=== PATIENT | male | born 1955 | race Caucasian/White ===

== ENCOUNTER 2025-05-02 03:49 | Day surgery (SDC) | payer OTHER, SELFPAY ==
[2025-04-16 11:03] VITALS: BMI 30.9
--- OUTSIDE RECORDS SUMMARY | 2025-05-02 03:52 | XMS_ITS ---
Author Organization [facility] Address [address] [facility] 61 [facility] G30 [place] [address] Care Team Providers Care Legal Support Specialist Name Role Phone Vignesh Gay Unavailable [phone] Social History Sex Assigned At : Social History Observation Description Sex Assigned At Male Encounters Encounter Location Date Provider Diagnosis [place] [facility] [address] [facility] 15 [place] [address] 10/13/2024 Vignesh Gay Plan Of Treatment No Information Progress Notes * KODY BRAVOOB:1955 ([age] yo M)Acc No.[id number]:10/13/2024 Progress Notes Patient: NAVID WISE Provider: Edwina MENDES MD, F.Fanny.C.P, F.A.S.N. :1955 A ge:69 Y S ex:Male Date:10/13/2024 Address:[address] [place], [place] [id number] Subjective: * Chief Complaints: * * Medical History: Objective: * Vitals: Assessment: Plan: * Treatment: * Billing Information: * Visit Code: * Procedure Codes: * Electronic signature of Enrique Gay MD on 05/02/2025 at 03:52 AM CDT Sign off status: Pending * Provider: Edwina MENDES MD, F.Fanny.C.P, F.A.S.N. Date: 0 10/13/2024 Generated for Printing/Faxing/eTransmitting on: 0 05/02/2025 03:52 AM CDT
--- OUTSIDE RECORDS SUMMARY | 2025-05-02 03:52 | XMS_ITS | Patient Health Record ---
Author Organization [facility] Address [address] [place] [address] [place] [address] Care Team Providers Care Student Records Coordinator Name Role Phone Vignesh Gay Unavailable [phone] Reason For Referral No Information Medications Medication SIG (Take, Route, Frequency, Duration) Notes Start Date End Date Status Urocit-K 10 10 MEQ (1080 MG) 2 tablet with meals Orally Three times a day; Duration: 90 day(s) 12/06/2024 Active Ergocalciferol 1.25 MG (15229 UT) 1 capsule Orally Once a week; Duration: 90 day(s) 12/06/2024 09/04/2025 Active Calcitriol 0.25 MCG 1 capsule Orally Onc e a day; Duration: 90 day(s) 12/06/2024 09/04/2025 Active Social History Sex Assigned At : Social History Observation Description Sex Assigned At Male Problems Problem Type SNOMED Code ICD Code Onset Dates Problem Status W/U Status Risk Notes Problem Type II diabetes mellitus without complication (368291769) Type 2 diabetes mellitus without complications (E11.9) Active confirmed Problem Hyperlipidemia (03229754) Hyperlipidemia, unspecified (E78.5) Active confirmed Problem Hydronephrosis w ith renal and ureteral calculous obstruction (N13.2) Active confirmed Problem Renal osteodystrophy (16066041) Renal osteodystrophy (N25.0) Active confirmed Problem Secondary hyperparathyroidism of renal origin (36880538) Secondary hyperparathyroidism of renal origin (N25.81) Active confirmed Problem Pyeloureteritis cystica (90507974) 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) Active confirmed Problem Essential hypertension (73350631) Essential hypertension (I10) Active confirmed Problem Chronic kidney disease stage 3A (disorder) (643513774) Chronic kidney disease, stage 3a (N18.31) Active confirmed Encounters Encounter Location Date Provider Diagnosis [facility] [place] [facility] [address] [place] [address] [place] [address] 09/08/2024 Vignesh Gay Chronic kidney disea se, stage 3b N18.32 ; Type 2 diabetes mellitus without complications E11.9 and Unspecified hydronephrosis N13.30 [place] [facility] [address] [address] 12/06/2024 Vignesh Gay Chronic kidney disea se, stage 3a N18.31 ; Type 2 diabetes mellitus without complications E11.9 ; Hyperlipidemia, unspecified E78.5 ; Renal osteodystrophy N25.0 ; Hydronephrosis with renal and ureteral calculous obstruction N13.2 ; Secondary hyperparathyroidism of renal origin N25.81 ; Pyeloureteritis cystica N28.85 and Essential hypertension I10 [facility] [address] [place] [address] 01/24/[address] [facility] Office [address] [address] 12/06/[address] [facility] [address] [place] [address] 12/08/2024 Vignesh Gay Assessments Encounter Date Diagnosis (ICD Code) Assessment Notes Treatment Notes Treatment Clinical Notes Section Notes 09/08/2024 Chronic kidney disea se, stage 3b (ICD-10 - N18.32) 09/08/2024 Type 2 diabetes mellitus without complications (ICD-10 - E11.9) 12/06/2024 Chronic kidney disea se, stage 3a (ICD-10 - N18.31) 09/08/2024 Unspecified hydronephrosis (ICD-10 - N13.30) 12/06/2024 Type 2 diabetes mellitus without complications (ICD-10 - E11.9) 12/06/2024 Hyperlipidemia, unspecified (ICD-10 - E78.5) 12/06/2024 Renal osteodystrophy (ICD-10 - N25.0) 12/06/2024 Hydronephrosis with renal and ureteral calculous obstruction (ICD-10 - N13.2) 12/06/2024 Secondary hyperparathyroidism of renal origin (ICD-10 - N25.81) 12/06/2024 Pyeloureteritis cyst ica (ICD-10 - N28.85) 12/06/2024 Essential hypertensi on (ICD-10 - I10) Plan Of Treatment No Information
--- OUTSIDE RECORDS SUMMARY | 2025-05-02 03:52 | XMS_ITS ---
Author Organization [facility] Address [address] [facility] 61 [facility] [address] [place] [address] Care Team Providers Care Site Manager Name Role Phone Vignesh Gay Unavailable [phone] Social History Sex Assigned At : Social History Observation Description Sex Assigned At Male Encounters Encounter Location Date Provider Diagnosis [place] [facility] [address] [facility] 15 [place] [address] 01/24/2025 Vignesh Gay Plan Of Treatment No Information Progress Notes * KODY BRAVOOB:1955 ([age] yo M)Acc No.[id number]:01/24/2025 Progress Notes Patient: NAVID WISE Provider: Edwina MENDES MD, F.Fanny.C.P, F.A.S.N. :1955 A ge:69 Y S ex:Male Date:01/24/2025 Address:[address] [place], [place] [phone] Subjective: * Chief Complaints: * * Medical History: Objective: * Vitals: Assessment: Plan: * Treatment: * Billing Information: * Visit Code: * Procedure Codes: * Electronic signature of Enrique Gay MD on 05/02/2025 at 03:52 AM CDT Sign off status: Pending * Provider: Edwina MENDES MD, F.Fanny.C.P, F.A.S.N. Date: 01/24/2025 Generated for Printing/Faxing/eTransmitting on: 05/02/2025 03:52 AM CDT
--- OUTSIDE RECORDS SUMMARY | 2025-05-02 03:52 | XMS_ITS | Continuity of Care Document ---
Author Organization [facility] Address [address] [place] [address] Phone Care Team Providers Care Mailing Machine Helper Name Role Phone Phuong Jernigan MD Unavailable Unavailabl e Procedures Procedure Date TISSUE EXAM BY PATHOLOGIST SPECIAL STAINS SPECIAL STAINS UPPER GI ENDOSCOPY BIOPSY Advance Directives Directive Yes / No Effective Date File Name No Information Encounters Encounter Description Practice Location Reason(s) For Visit Diagnoses Date Provider Providers Copied on Encounter [facility], [address], [place], [place], [address], tel:[phone] [facility] No Information Delon aBca. [facility], [id number], [place]. tel:[phone] [facility], [address], [place], [address], tel:[phone] [facility] No Information Delon Baca. [address], [id number], [place]. tel:[phone] Referring Provider: Danny Oliveira, [facility]6 [facility], [place], [address]. tel:[phone] [facility], [address], [place], [address], tel:[phone] [facility] No Information Delon Baca. [address], [id number], . tel:[phone] Referring Provider: Danny Oliveira, [address] [facility], [place], [address]. tel:[phone] Family History Family Member Type Diagnosis Age At Onset No Information Payers Payer name Insurance type Covered libertarian ID Authoriza tipriti(s) [facility] CHOICE PLUS CI [id number] Social History Type Description Quantity Date Captured Comments Sex Male Smoking Status No Information Chief Complaint And Reason For Visit No Information Reason For Referral Reason For Referral No Information History Of Present Illness Encounter Date Complaint History Of Prese nt Illness No Information Functional Status Date Functional Assessmen t No Information Instructions Date Instruction Additional Infor mation No Information Assessments Type Assessment Date No Information Patient Care Teams Name Effective Dates (start - stop) Status Members No Information
--- OUTSIDE RECORDS SUMMARY | 2025-05-02 03:53 | XMS_ITS ---
Author Organization [facility] Address [address] [place] [address] Care Team Providers Care Neuro Urologist Name Role Phone Vignesh Gay Unavailable [phone] Social History Sex Assigned At : Social History Observation Description Sex Assigned At Male Problems Problem Type SNOMED Code ICD Code Onset Dates Problem Status W/U Status Risk Notes Problem Hyperlipidemia (12838458) Hyperlipidemia, unspecified (E78.5) Active confirmed Problem Renal osteodystrophy (74741013) Renal osteodystrophy (N25.0) Active confirmed Problem Chronic kidney disease stage 3A (disorder) (836949386) Chronic kidney disease, stage 3a (N18.31) Active confirmed Problem Hydronephrosis w ith renal and ureteral calculous obstruction (N13.2) Active confirmed Problem Secondary hyperparathyroidism of renal origin (67074379) Secondary hyperparathyroidism of renal origin (N25.81) Active confirmed Problem Pyeloureteritis cystica (75290266) 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) Active confirmed Problem Essential hypertension (40625310) Essential hypertension (I10) Active confirmed Encounters Encounter Location Date Provider Diagnosis [place] [facility] [address] [facility] [address] [address] [place] [address] 12/06/2024 Vignesh Gay Chronic kidney disea se, stage 3a N18.31 ; Type 2 diabetes mellitus without complications E11.9 ; Hyperlipidemia, unspecified E78.5 ; Renal osteodystrophy N25.0 ; Hydronephrosis with renal and ureteral calculous obstruction N13.2 ; Secondary hyperparathyroidism of renal origin N25.81 ; Pyeloureteritis cystica N28.85 and Essential hypertension I10 Assessments Encounter Date Diagnosis (ICD Code) Assessment Notes Treatment Notes Treatment Clinical Notes Section Notes 12/06/2024 Chronic kidney disea se, stage 3a (ICD-10 - N18.31) 12/06/2024 Type 2 diabetes mellitus without complications (ICD-10 - E11.9) 12/06/2024 Hyperlipidemia, unspecified (ICD-10 - E78.5) 12/06/2024 Renal osteodystrophy (ICD-10 - N25.0) 12/06/2024 Hydronephrosis with renal and ureteral calculous obstruction (ICD-10 - N13.2) 12/06/2024 Secondary hyperparathyroidism of renal origin (ICD-10 - N25.81) 12/06/2024 Pyeloureteritis cyst ica (ICD-10 - N28.85) 12/06/2024 Essential hypertensi on (ICD-10 - I10) Plan Of Treatment No Information Progress Notes * KODY BRAVOOB:1955 ([age] yo M)Acc No.[id number]:12/06/2024 Progress Notes Patient: NAVID WISE Provider: Edwina MENDES MD, F.A.C.P, F.A.S.N. :1955 A ge:69 Y S ex:Male Date:12/06/2024 Address:[address] [place], [place] [id number] Subjective: * Chief Complaints: * * Medical History: Objective: * Vitals: Assessment: * Assessment: 1. C hronic kidney disease, stage 3a - N18.31 (Primary) 2 . T ype 2 diabetes mellitus without complications - E11.9 3 . H yperlipidemia, unspecified - E78.5 4 . R enal osteodystrophy - N25.0 5 . H ydronephrosis with renal and ureteral calculous obstruction - N13.2 6 . S econdary hyperparathyroidism of renal origin - N25.81 7 . P yeloureteritis cystica - N28.85 ?8. E ssential hypertension - I10 Plan: * Treatment: * Billing Information: * Visit Code: 19601 Office Visit, Est Pt., Level 4. * Procedure Codes: * Electronic signature of Enrique Gay MD on 05/02/2025 at 03:52 AM CDT Sign off status: Pending * Provider: Edwina MENDES MD, F.A.C.P, F.A.S.N. Date: 0 12/06/2024 Generated for Printing/Faxing/eTransmitting on: 0 05/02/2025 03:52 AM CDT
--- OUTSIDE RECORDS SUMMARY | 2025-05-02 03:53 | XMS_ITS | Clinical Summary ---
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 Gender Identity Not on file Sexual Orientation Not on file Plan of Treatment Upcoming Encounters Date Type Department Care Team (Late st Contact Info) Description 05/11/2025 10:11 AM CDT Hospital Encounter [facility] [place] [address] Johan Becker MD 3 [facility] [address] [place] [address] 05/11/2025 10:11 AM CDT - 05/11/2025 12:28 PM CDT Surgery [facility] [place] [address] Johan Becker MD 3 [facility] [address] [place] [address] CYSTOSCOPY, LEFT RETROGRADE PYELOGRAM, URETEROSCOPY, LASER LITHOTRIPSY, STONE BASKET EXTRACTION, LEFT URETERAL STENT PLACEMENT 06/12/2025 11:20 AM CDT Office Visit [facility] - [address] [place] [address] Cristal Stapleton MD 3 [facility], [address] [address] Scheduled Procedures Name Priority Associated Diagnoses Date/Ti me CYSTOSCOPY URETEROSCOPY, STO NE EXTRACTION, HOLMIUM LASER, STENT UROLITHIASIS N20.9 05/11/2025 10:11 AM CDT Health Maintenance Due Date Last Done Comments Colorectal Cancer Screening Colonoscopy (10 Years) 1955 Hepatitis C 1972 DTaP, Tdap and Td Vaccines ( 1 - Tdap) 1973 Pneumococcal Vaccine: 50+ Ye ars (1 of 1 - PCV) 2004 Zoster Vaccines (1 of 2) 2004 COVID-19 Vaccine (1 - 2023-2 5 season) 2024 PHQ-2 (Physician [place]) 09/27/2024 RSV Immunization or 60+ Years (1 - 1-dose 75+ series) 2029 Meningococcal B Vaccine Aged Out No l onger eligible based on patient's age to complete this topic Meningococcal Vaccine Aged Out No brant sveta eligible based on patient's age to complete this topic RSV Immunizations Under 20 Months Aged Out No longer eligible based on patient's age to complete this topic Goals Goal Patient Goal Type Associated Problems Recent Progress Patient-Stated? Author Autogenerat ed Goal Care Plan Autogenerated Problem No Tonya Daley RN Additional Health Concerns Active Problems Noted Date Diagnosed Date Autogenerated Problem 04/25/2025 Insurance [employer] Care Teams Wood Scaler Relationship Specialty Start Date End Date Reddy Lockwood MD [address] [place] [address] PCP - General [facility]ILY [facility] SPORTS MEDICINE 10/25/20
[2025-05-02 12:34] VITALS: BP 138/77; PULSE 58; RESP 16; TEMP 36.9; O2SAT 98; BMI 30.2
[2025-05-02] MEDS: LACTATED RINGERS 1,000 ML 150 ML IV CONT (12:54)
--- NOTE | 2025-05-02 13:26 | WPDANESEPPF ---
Anes - Initial Pre Proc Eval Procedure: Operation Date: 05/02/25 14:00 Proposed Procedures p EGD & Diagnostic Colonoscopy - Richard Mosqueda MD Date/Time: 05/02/25 13:26 Surgeon: Richard Mosqueda MD Pre Op Diagnosis: Anemia, unspecified Patient Data Age: 70 Gender: M Height: 1.91 m Weight: 109.6 kg Last Vital Signs Temp 36.9 C 05/02/25 12:34 Pulse 58 L 05/02/25 12:34 Resp 16 05/02/25 12:34 BP 138/77 05/02/25 12:34 Pulse Ox 98 05/02/25 12:34 O2 Del Method Room Air 05/02/25 12:34 Allergies Allergy/AdvReac Type Severity Reaction Status Date / Time No Known Allergies Allergy Verified 05/02/25 12:40 Home Medications ?Medication ?Instructions ?Recorded ?Confirmed ?Type amlodipine 10 mg tablet 10 mg PO DAILY 04/16/25 05/02/25 History atorvastatin 40 mg tablet 40 mg PO DAILY 04/16/25 05/02/25 History calcitriol 0.25 mcg capsule 0.25 mcg PO DAILY 04/16/25 05/02/25 History ergocalciferol (vitamin D2) 1,250 50,000 unit PO WEEKLY 04/16/25 05/02/25 History mcg (50,000 unit) capsule ferrous sulfate 325 mg (65 mg 325 mg PO DAILY 04/16/25 05/02/25 History iron) tablet (Feosol) losartan 50 mg tablet 100 mg PO DAILY 04/16/25 05/02/25 History metformin 500 mg tablet,extended 500 mg PO BID 04/16/25 05/02/25 History release 24 hr metoprolol tartrate 50 mg tablet 50 mg PO BID 04/16/25 05/02/25 History omega-3 fatty acids 1,250 mg PO BID 04/16/25 05/02/25 History omeprazole 20 mg capsule,delayed 20 mg PO BID 04/16/25 05/02/25 History release tamsulosin 0.4 mg capsule 0.4 mg PO DAILY 04/16/25 05/02/25 History Laboratory Tests 05/02/25 12:56 POC Capillary Glucose 84 mg/dl (65-105) Patient hx anesthesia problems: none Family hx anesthesia problems: none Results Review: All pre-operative results and documents have been reviewed as part of the pre-operative evaluation. [facility] Past Medical History Medical History (Updated 05/02/25 @ 13:27 by Kobe Giordano DO) Hypertension Social History Social History Smoking status: Former smoker Tobacco type: cigarettes Smokeless tobacco user: chewing tobacco Substance use: current Substance use type: marijuana Last use: daily Living arrangements: with family Spiritual care concerns: No Anes - Eval Final PreProcedure Day of Procedure 05/02/25 13:26 Patient weight: obese Heart: regular rate and rhythm Lungs: clear to auscultation Airway: Mallampati scale class II Neurological: alert and oriented Last oral intake: >/= 8 hours ASA classification: III Emergent: no Anesthetic plan: proceed Anesthesia type and monitoring: general GIVS and standard monitoring Results Review: All pre-operative results and documents have been reviewed as part of the pre-operative evaluation. Informed Consent: The patient's anesthetic plan and its attendant risks and benefits were discussed with the patient/family/POA. Questions were solicited and answers provided to the satisfaction of the patient/family/POA.
--- NOTE | 2025-05-02 13:51 | P.HP_ITS ---
H&P: HPI History of Present Illness Date/Time: 05/02/25 13:51 Chief Complaint: Nausea -iron deficiency anemia Narrative: the patient is referred from an outside institution for the investigation of iron deficiency anemia. His last colonoscopy was more than 10 years ago, however last year he had 2 EGDs due to persistent nausea but no vomiting. His diagnosis was gastritis. There is no abdominal pain, dysphagia, heartburn or unintentional weight loss. There is no melena or hematochezia. Review of Systems Review of Systems: All systems reviewed & are unremarkable except as noted in HPI and below PMFSH Past Medical History Medical History (Updated 05/02/25 @ 13:53 by Richard Mosqueda MD) Hypertension Social History Social History Smoking status: Former smoker Tobacco type: cigarettes Smokeless tobacco user: chewing tobacco Substance use: current Substance use type: marijuana Last use: daily Living arrangements: with family Spiritual care concerns: No Meds Home Medications and Allergies Home Medications ?Medication ?Instructions ?Recorded ?Confirmed ?Type amlodipine 10 mg tablet 10 mg PO DAILY 04/16/25 05/02/25 History atorvastatin 40 mg tablet 40 mg PO DAILY 04/16/25 05/02/25 History calcitriol 0.25 mcg capsule 0.25 mcg PO DAILY 04/16/25 05/02/25 History ergocalciferol (vitamin D2) 1,250 50,000 unit PO WEEKLY 04/16/25 05/02/25 History mcg (50,000 unit) capsule ferrous sulfate 325 mg (65 mg 325 mg PO DAILY 04/16/25 05/02/25 History iron) tablet (Feosol) losartan 50 mg tablet 100 mg PO DAILY 04/16/25 05/02/25 History metformin 500 mg tablet,extended 500 mg PO BID 04/16/25 05/02/25 History release 24 hr metoprolol tartrate 50 mg tablet 50 mg PO BID 04/16/25 05/02/25 History omega-3 fatty acids 1,250 mg PO BID 04/16/25 05/02/25 History omeprazole 20 mg capsule,delayed 20 mg PO BID 04/16/25 05/02/25 History release tamsulosin 0.4 mg capsule 0.4 mg PO DAILY 04/16/25 05/02/25 History Allergies Allergy/AdvReac Type Severity Reaction Status Date / Time No Known Allergies Allergy Verified 05/02/25 12:40 Vital Signs Vital Signs - 24 hr 05/02/25 12:34 Temperature 98.5 F Pulse Rate 58 L Respiratory Rate 16 Blood Pressure 138/77 Pulse Oximetry 98 Oxygen Delivery Room Air Exam Const: General: cooperative and healthy appearing Resp: Effort & Inspection: normal respiratory effort and able to speak in complete sentences Auscultation: clear to auscultation bilaterally Cardio: Rate: regular rate Rhythm: regular rhythm GI: Inspection: normal to inspection GI Palp: No No hepatosplenomegaly pre sent Auscultation: normal bowel sounds Rectal Exam: deferred Skin: General skin exam: normal color Psych: Appearance: grossly normal Mental Status: mental status grossly normal Assessment and Plan Assessment and plan (1) Iron deficiency anemia: Code(s): D50.9 - Iron deficiency anemia, unspecified Status: Acute Assessment and Plan: The patient is deemed a good candidate for the procedures. Consent signed. Will proceed.
--- NOTE | 2025-05-02 14:02 | SUR.OPER ---
EGD 4948-1985. Colonoscopy start time 1405.
--- NOTE | 2025-05-02 14:17 | S_PTH ---
PATIENT: Minor Bravo LOC: [facility] Kang#:[id number] AGE/SX: 70/M ROOM: RE05/02/[address]: Richard Mosqueda MD : 1955 BED: DIS: 05/02/2025 SPEC #: [id number] RECD: 05/03/25 09:32 STATUS: MARIAH RELarry #: [id number] BI: 05/02/25 14:[address]: Richard Mosqueda DEPT: [facility] Surgical RECD BY: Taylor Yee ENTERED: 05/03/25 09:33 SP TYPE: Surgical OTHR DR: Kim Kohler, CARBON GRINDER Tissues: A - Gastric Biopsy B - Gastric Biopsy Procedures: Hematoxylin and Eosin Stain Gross and Microscopic Level 4
[2025-05-02 14:20] VITALS: BP 129/79; PULSE 60; RESP 20; O2SAT 98
[2025-05-02 14:30] VITALS: BP 130/79; PULSE 54; RESP 20; O2SAT 98
[2025-05-02 14:40] VITALS: BP 158/91; PULSE 60; RESP 20; O2SAT 100
== END 2025-05-02 14:55 | disposition home or self-care (01) ==
PROVIDERS: PCP Nurse Practitioner; Referring Provider Nurse Practitioner; Visit Provider Internal Medicine Gastroenterology
PROC: 0DJ08ZZ Inspection of Upper Intestinal Tract, Via Natural or Artificial Opening Endoscopic (ICD-10-PCS; CPT 45378; principal; 2025-05-02 14:00)
DX: D50.9 Iron deficiency anemia, unspecified (principal); K29.50 Unspecified chronic gastritis without bleeding; K57.30 Diverticulosis of large intestine without perforation or abscess without bleeding; I10 Essential (primary) hypertension; F17.220 Nicotine dependence, chewing tobacco, uncomplicated; F12.90 Cannabis use, unspecified, uncomplicated; E66.9 Obesity, unspecified; Z68.30 Body mass index [BMI] 30.0-30.9, adult; Z79.84 Long term (current) use of oral hypoglycemic drugs
CPT/HCPCS: 43239; 45378; 82948; 88305; J2704; J7120

== ENCOUNTER 2025-08-01 15:35 | Outpatient (CLI) | payer OTHER, SELFPAY ==
--- NOTE | ~2025-08-01 | XR_ITS ---
PROCEDURE(S): X-ray abdomen/KUB 1 view INDICATION(S): Urolithiasis COMPARISON(S): None. TECHNIQUE: 2 AP radiographic images was/were obtained. FINDINGS: Bowel gas: The bowel gas pattern is non-specific. There is no evidence of bowel obstruction. There is a moderate amount of overlying fecal material which limits evaluation of the renal beds and expected courses of the ureters. Soft tissues: Calcifications in both sides of the pelvis could relate to phleboliths, but one lying in a ureter on either side cannot be excluded. Bones: Osseous structures appear to be intact. IMPRESSION: Limited evaluation for urinary tract stones. They're not excluded, but no definite stone is seen. Reviewed, dictated and finalized at location A. R FOLDER
--- NOTE | ~2025-08-01 | US_ITS ---
US retroperitoneal comp 08/01/2025 16:05 Procedure: Realtime transabdominal ultrasound of the kidneys and bladder. Indication: Urolithiasis Comparison: KUB dated 08/01/2025 Findings: Renal echotexture is normal bilaterally without hydronephrosis, contour deforming mass. There bilateral echogenic foci in the kidneys with posterior shadowing, consistent with nonobstructing renal stones. The right kidney measures 11 cm and left kidney measures 8.5 cm. Bladder within normal limits. Impression: 1: Echogenic foci in both kidneys with posterior shadowing. No hydronephrosis. Findings compatible with nonobstructing nephrolithiasis. Reviewed, dictated and finalized at location A. ERCIAL SOLAR SALES CONSULTANT Impression: 1: Echogenic foci in both kidneys with posterior shadowing. No hydronephrosis. Findings compatible with nonobstructing nephrolithiasis.
== END 2025-08-01 15:36 | disposition home or self-care (01) ==
LOC: MICIMG 15:35
PROVIDERS: PCP Nurse Practitioner; Visit Provider Urology
DX: N20.9 Urinary calculus, unspecified (principal)
CPT/HCPCS: 74018; 76770